=== PATIENT | female | born 1985 | race Caucasian/White ===

== ENCOUNTER 2020-06-01 19:40 | Emergency (ER) | payer OTHER ==
[~2020-06-01 19:40] MED LIST: COLACE 100MG C100 MG PO; IBUPROFEN600 MG PO; MULTIVITAMINS1 EAC1 PO; NORCO 5-325 TA1 EACH PO
== END 2020-06-01 21:20 | disposition left against medical advice (07) ==
LOC: ER1 19:40
DX: R10.9 Unspecified abdominal pain (principal); R11.0 Nausea; Z53.21 Procedure and treatment not carried out due to patient leaving prior to being seen by health care provider